=== PATIENT | male | born 1945 | race Caucasian/White ===

== ENCOUNTER 2020-12-22 10:15 | Emergency (ER) | payer OTHER ==
--- NOTE | 2020-12-22 11:27 | EDM.PDOC ---
ED HPI GENERAL MEDICAL PROBLEM - General Chief Complaint: Genitourinary Problem Stated Complaint: GI ISSUE Time Seen by Provider: 12/22/20 10:45 Source of Information: Reports: Patient History Limitations: Reports: No Limitations - History of Present Illness INITIAL COMMENTS - FREE TEXT/NARRATIVE: urinary retention for 2 days no h/o prostate problems no fever or chills here for fishing - has been driving for awhile and on boat as well. Onset: Sudden Duration: Day(s): (2) Location: Reports: Abdomen Quality: Reports: Pressure Severity: Mild Bilateral Pelvic Pain Score (Numeric/FACES): 8 - Related Data Allergies Allergy/AdvReac Type Severity Reaction Status Date / Time No Known Allergies Allergy Verified 12/22/20 10:24 Past Medical History Cardiovascular History: Reports: High Cholesterol, Hypertension - Past Surgical History Musculoskeletal Surgical History: Reports: Knee Replacement Social & Family History - Caffeine Use Caffeine Use: Reports: Coffee, Soda - Recreational Drug Use Recreational Drug Use: No ED ROS GENERAL - Review of Systems Review Of Systems: See Below Constitutional: Reports: No Symptoms HEENT: Reports: No Symptoms Respiratory: Reports: No Symptoms Cardiovascular: Reports: No Symptoms Endocrine: Reports: No Symptoms : Reports: Urgency, Urinary Retention Musculoskeletal: Reports: No Symptoms Skin: Reports: No Symptoms ED EXAM, RENAL/ - Physical Exam Exam: See Below Exam Limited By: No Limitations General Appearance: Alert, WD/WN, No Apparent Distress Eye Exam: Bilateral Eye: EOMI Respiratory/Chest: No Respiratory Distress, Lungs Clear Cardiovascular: Regular Rate, Rhythm GI/Abdominal: Normal Bowel Sounds, Soft, Non-Tender (Male) Exam: Suprapubic Fullness Extremities: Normal Inspection Course - Vital Signs Last Recorded V/S: Last Vital Signs Temp 36.8 C 12/22/20 10:19 Pulse 96 12/22/20 10:19 Resp 18 12/22/20 10:19 BP 168/110 H 12/22/20 10:19 Pulse Ox 96 12/22/20 10:19 - Orders/Labs/Meds Orders: Active Orders 24 hr Category Date Time Status Urinary Catheter Assessment [RC] ASDIRECTED Care 12/22/20 11:12 Active Urinary Catheter Insertion [Insert Urinary Catheter] [ Care 12/22/20 11:15 Ordered OM.PC] Q24H UA RFX MARTÍN AND CULT IF INDIC [URIN] Stat Lab 12/22/20 11:08 Ordered - Re-Assessments/Exams Free Text/Narrative Re-Assessment/Exam: 12/22/20 11:23 bladder scan 600+ ml a catheter was placed - emptied around 900ml immediate relief of symptoms UA was sent to lab Departure - Departure Time of Disposition: 11:24 Disposition: Home, Self-Care 01 Condition: Good Clinical Impression: Retention of urine - Discharge Information *PRESCRIPTION DRUG MONITORING PROGRAM REVIEWED*: Not Applicable *COPY OF PRESCRIPTION DRUG MONITORING REPORT IN PATIENT DIOR: Not Applicable Instructions: Acute Urinary Retention, Male, Acute Urinary Retention, Male, [id number] Referrals: PCP,None [Primary Care Provider] - Sepsis Event Note (ED) - Evaluation Sepsis Screening Result: No Definite Risk - Focused Exam Vital Signs: Vital Signs Temp Pulse Resp BP Pulse Ox 12/22/20 10:19 36.8 C 96 18 168/110 H 96 - Problem List & Annotations (1) Retention of urine SNOMED Code(s): 070227240 Code(s): R33.9 - RETENTION OF URINE, UNSPECIFIED Status: Acute Current Visit: Yes - Problem List Review Problem List Initiated/Reviewed/Updated: Yes - My Orders Last 24 Hours: My Active Orders 12/22/20 11:08 UA RFX MARTÍN AND CULT IF INDIC [URIN] Stat 12/22/20 11:12 Urinary Catheter Assessment [RC] ASDIRECTED 12/22/20 11:15 Urinary Catheter Insertion [Insert Urinary Catheter] [OM.PC] Q24H - Assessment/Plan Last 24 Hours: My Active Orders 12/22/20 11:08 UA RFX MARTÍN AND CULT IF INDIC [URIN] Stat 12/22/20 11:12 Urinary Catheter Assessment [RC] ASDIRECTED 12/22/20 11:15 Urinary Catheter Insertion [Insert Urinary Catheter] [OM.PC] Q24H Plan: start taking antibiotics as prescribed for 3 days take flomax to help with urination follow up with your PCP in 1-2 weeks for a checkup return to the ER if any concerns or worsening of symptoms
== END 2020-12-22 11:36 | disposition home or self-care (01) ==
LOC: LB.ED 11:36
DX: R33.9 Retention of urine, unspecified (principal); I10 Essential (primary) hypertension
CPT/HCPCS: 51701; 51798; 81001; 99283-25